=== PATIENT | male | born 1940 | race Caucasian/White ===

== ENCOUNTER 2016-07-20 01:47 | Inpatient (IN) | payer OTHER ==
[2016-07-20 01:45] VITALS: BP 72/56
[~2016-07-20 01:47] MED LIST: SIMV20TA3 PO; other
[2016-07-20] MEDS ORDERED: ONDANSETRON PF 4 MG/2 ML VIAL. ONE ×2 (01:49→02:00)
[2016-07-20 01:50] VITALS: BP 76/53
--- NOTE | 2016-07-20 04:17 | PHYS DOC ---
Adult General HPI HPI I was called to the ICU by overhead page for code blue. Arrived to find CPR & bagging in progress on unresponsive pulseless patient. Pulse checks initially showed PEA, gave epinephrine. BUSINESS RULES ANALYST was at the bedside, had been preparing to intubate prior to cardiac arrest. She intubated the patient during pulse check. Bagging continued. Patient had subsequent pulse checks showing ventricular fibrillation, received 4 shocks, administered additional epinephrine & amiodarone. Sodium bicarbonate had been given prior to my arrival. After shocks patient found to be in PEA. At no time was there any return of spontaneous circulation. I discussed on several occasions with the patient's son who was present at bedside. Code run for over 20 minutes without ROSC, further efforts would be futile. The code was called & time of was as noted on nursing documentation. I updated Dr. Vaughan regarding the patient's course & . Critical care time: 40 minutes Current Medications Current Medications Current Medications Medications (Trade) Dose Ordered Sig/Mary Start Time Stop Time Status Last Admin Dose Admin Ondansetron HCl (Zofran) 4 mg STK-MED ONCE 07/20/16 01:49 07/20/16 01:50 DC Allergies Allergies Allergies Coded Allergies Type Severity Reaction Last Updated Verified No Known Drug Allergies 07/13/13 No EKG EKG [] Radiology/Procedures Radiology/Procedures [] Dragon Disclaimer Dragon Disclaimer This electronic medical record was generated, in whole or in part, using a voice recognition dictation system. Departure Departure Referrals: OSMIN OWENS MD (PCP) FRANCK FISHMAN MD July 20, 2016 04:17
[2016-07-20] MEDS ORDERED: SODIUM BICARB ADULT 8.4% 50 MEQ/50 ML DISP.SYRIN. ONE (05:00)
[2016-07-20] MEDS ORDERED: EPINEPHrine VIAL 30 MG/30 ML VIAL ONE (05:00)
[2016-07-20] MEDS ORDERED: AMIODARONE 150 MG/3 ML VIAL ONE (05:00)
[2016-07-20] MEDS ORDERED: NOREPINEPHRIN PREMIX 250 ML IV ONE (05:00)
[2016-07-20] MEDS ORDERED: EPINEPHrine SYRINGE 1 MG/10 ML SYRINGE ONE (05:00)
--- NOTE | 2016-07-20 15:14 | SSS ---
ADMIT DATE: 07/20/2016 HISTORY OF PRESENT ILLNESS: The patient is a 75-year-old male patient that I have never seen in either [facility] or [facility]. I was informed by the nursing staff at [facility], the patient is hypotensive and seems to be markedly congested and fluid overload. His systolic pressure was only 72 and his troponin was high. She also told me that his CT scan was consistent with pulmonary edema and therefore, I recommended the patient be transferred to [facility] and starting him on Levophed. He was basically transferred from [facility]. Upon arrival to the ICU at [facility], his blood pressure was 72/54 on 5 mcg per kilogram per minute of Levophed as Michaelle, the RN at [facility] started titrating up there to maintain a mean arterial pressure of 65 mmHg. We did not give him any IV fluid there nor gave him Lasix given that he is fluid overloaded and hypotensive. I was contacted by the nursing staff at the ICU at [facility] and gave orders to repeat his labs and do blood gases and also to consult the chief crna and Infectious Disease as well as the hyperion administrator and initially, there was plan for him to go on BiPAP, but apparently the patient declined quickly and the certified RNA channel business manager was paged at 1:50 for intubation. The patient was requiring rescue breathing and beginning to keanu down and code tashi was called at 1:53. Son called and arrived during the code. Son was given explanation of the situation and present for code by his own choice. Dr. Jones arrived from the ER to run the code. She found CPR and bagging in progress and unresponsive pulses. The patient's pulse initially showed that he has pulseless electrical activity and she gave epinephrine. The RNA was at the bedside and was preparing to intubate. Prior to cardiac arrest, she intubated the patient. During the pulse check, bagging continued. The patient had subsequent pulse check showing ventricular fibrillation and received 4 shocks, administered additional epinephrine and amiodarone. Sodium bicarbonate has been given prior to the arrival of the Emergency Room physician. After shock, the patient was found to be in pulseless electrical activity. At no time was there any return of spontaneous circulation. His son was present at bedside and the ER physician discussed on several occasions the situation. The code was run for over 20 minutes without return of spontaneous circulation, it was felt therefore it would be futile, the code was called in. The time of was noted at around 2:17 a.m., and at time he was pronounced . His son apparently was very upset and requesting autopsy to be performed and that was ordered at his son's request. I would emphasize that at no time I have seen the patient and I was likely prepared at around little after 2 o'clock to come to the hospital and I was contacted by the ER physician, Dr. Jones, stated that the patient has coded and was pronounced at around 2:17. LU DIAZ MD DR: AURORA/derek JOB#: [id number] / [id number]
== END 2016-07-20 05:00 | disposition expired | DRG 309 ==
LOC: 1 WEST ICU 01:47
PROVIDERS: ADMIT Internal Medicine; ATTEND Internal Medicine
PROC: 5A12012 Performance of Cardiac Output, Single, Manual (ICD-10-PCS; principal; 2016-07-20)
DX: I49.01 Ventricular fibrillation (principal); J81.1 Chronic pulmonary edema; I95.9 Hypotension, unspecified; I46.9 Cardiac arrest, cause unspecified; E87.70 Fluid overload, unspecified; Z53.29 Procedure and treatment not carried out because of patient's decision for other reasons
CPT/HCPCS: J0171; J0282; J2405